=== PATIENT | female | born 1935 | race Caucasian/White ===

== ENCOUNTER 2016-10-12 06:01 | Day surgery (SDC) | payer MEDICARE ==
[~2016-10-12] VITALS: Ht 160 cm; Wt 92.8 kg
[2016-10-12] MEDS: Lactated Ringer's 1,000 ML IV SCH ×2 (05:05→07:27)
[~2016-10-12 06:01] MED LIST: ACET325T51 PO; ALEN70TA51 PO; CALC-714 PO; CARV12.52 PO; CeFAZolin 2 Gm/50 mL D5W IV Premix IV ONE; DABI150C PO; HYG25 PO; LEVO75TA4 PO; LISI10TA PO; METF500T4 PO; MULT1CAP60 PO; OMEG1CAP25 PO; SIMV20TA4 PO; TAMS0.4C98 PO
[2016-10-12] MEDS ORDERED: Propofol 10,000 mCg/mL 20 mL Inj ONE (06:02)
[2016-10-12] MEDS ORDERED: fentaNYL-PF 50 mCg/mL 2 mL Inj ONE (06:02)
[2016-10-12 06:43] VITALS: BP 105/68; PULSE 95; RESP 16; O2SAT 95
--- NOTE | 2016-10-12 07:19 | PCM.HPANE ---
Patient Data Date of Service: Oct 12, 2016 Surgeon Admitting Provider: Attending Provider:Kaykay Deleon MD Primary Care Physician:Harpreet Go MD Other Provider:Dora Mcmanus Anesthesia Reason for Visit Fecal Incontinence And Urgency Of Urination Ht/WT & BMI Height (Feet): 5 Height (Inches): 3.00 Weight (Kilograms): 92.8 Body Mass Index 36.00 Allergies Coded Allergies: No Known Allergies (Unverified , 10/06/16) Past Anesthesia History Anesthesia History: Denies:: Anesthesia Reactions Diabetes History Hx Diabetes?: Yes Type of Diabetes: Type II Glycemic Control: Oral Medication Current Bedside Blood Glucose: 147 MRSA MRSA: No Medications Blood Thinner: Pradaxa Hypertension Medication: Yes Home Meds Incl Beta Bryan: Yes (Carvedilol 12.5mg) Date Beta Bryan Taken: Oct 12, 2016 Time Beta Bryan Taken: 524 Reported Medications Acetaminophen 325 Mg Foykvn011 Mg PO Q4H PRN For Pain Ref 0 10/06/16 Tamsulosin (Flomax)0.4 Mg Capsule0.4 Mg PO DAILY Ref 0 10/06/16 Simvastatin 20 Mg Tpbyhw07 Mg PO HS Ref 0 10/06/16 Dabigatran Etexilate Mesylate (Pradaxa)150 Mg Psaajqb033 Mg PO BID 30 Days 10/06/16 [place]-3 Fatty Acids/Fish Oil ([place] 3 Fish Oil Softgel)1 Each Capsule.dr1 Each PO DAILY 10/06/16 Multivit-Min/Fe Fum/FA/Vit K (Multi For Her Softgel)18 Mg Iron-600 Mcg-40 Mcg Capsule1 Each PO DAILY 10/06/16 Metformin 500 Mg Yqrzkx700 Mg PO BID Ref 0 10/06/16 Lisinopril 10 Mg Rrnfti26 Mg PO DAILY 30 Days Ref 0 10/06/16 Levothyroxine 75 Mcg Jbwjlr07 Mcg PO DAILY Ref 0 10/06/16 Chlorthalidone 25 Mg Uzswfr47.5 Mg PO DAILY #30 TABLET 10/06/16 Carvedilol 12.5 Mg Ylodbb56.5 Mg PO BID Ref 0 10/06/16 Calcium Carb/Magnesium Cmb #10 (Galo-Mag Tablet Chewable)1 Each Tab.chew2 Each PO DAILY 10/06/16 Alendronate (Binosto)70 Mg Tablet.eff70 Mg PO WEEKLY 10/06/16 History History of ENT Problems?: No HEENT History: Denies:: Abnormal Airway Dysphagia Denture Type: None Teeth Condition: Within Normal Limits Hx of Heart Problems?: Yes Cardiovascular History: Positive for:: Atrial Fibrillation (hx of ablation 2002) Hypertension Irregular Heartbeat Hx of Respiratory Problem?: No Respiratory History: Denies:: Oxygen Administration Use of C-PAP Machine Hx Neurologic Problems?: Yes Neurological History: Positive for:: CVA (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) Denies:: Multiple Sclerosis Parkinson's Disease Seizures Hx of GI Problems?: No Hx of Problems?: Yes Genitourinary History: Denies:: Kidney Stones Urinary Tract Infection Female Hx: Denies:: Currently (hysterectomy) Hx Musculoskeletal Problems?: No Hx of Psycho/Social Problems?: No Hx Surgeries?: Yes (araceli/bso, tonsil, thyroid bx) Hx Any Other Health Problems?: Yes Other History: Denies:: Cancer Hx Diabetes: YesBedside Blood Glucose: 147 Hx Alcohol Use: YesAlcoholic Drinks Per Day: rarelyHx Substance Use: NoHave You Smoked inLast 12 mo: No Stop/Bang P-Blood Pressure: treated: Yes B- Body Mass Index > 35 kg/m2: No A- Age over 50: Yes N- Neck Large Circumference: No STEVE Risk Assessment: Low Risk, <3 Yes Risk Assessment Category Category 1A: Patient has history of documented sleep apnea, and HAS NOT received any narcotic, sedative or anesthesia administration during this stay. Category 1B: Patient has history of documented sleep apnea, and HAS received any narcotic , sedative or anesthesia administration during this stay Category 2: Patient has SUSPECTED Obstructive Sleep Apnea, and HAS received any narcotic , sedative or anesthesia administration during this stay. Category 3: Patient has SUSPECTED Obstructive Sleep Apnea and HAS NOT received narcotic, sedative or anesthesia administration during this stay. Category 4: Outpatient in Procedural Areas with known sleep apnea or who screen positive for High Risk via the STOP/BANG questionnaire. Exam Exam Vital Signs Vital Signs Date Time Temp Pulse Resp B/P Pulse Ox O2 Delivery O2 Flow Rate FiO2 10/12/16 06:43 36.1 95 16 105/68 95 Room Air General Appearance: Alert, Oriented X3, Cooperative, No Acute Distress HEENT/AIRWAY: MP 2 Lungs: Clear to Auscultation, Normal Air Movement Heart: Exam Unremarkable, Regular Rate/Rhythm, No Murmurs/Rubs/Gallops Meds/Labs/Diagnostics Admission Meds Current Medications Lactated Ringer's (Lr) 1,000 ml @ 10 mls/hr Q24H IV Last administered on t 05:05; Start 10/12/16 at 05:00; Stop 10/16/16 at 08:59 Bedside Blood Glucose: 147 Plan Impression Patient chart reviewed, patient interviewed and anesthestic plan with risks, benefits, and alternatives discussed, and informed consent obtained. NPO per Anesth. Guidelines: Yes ASA Physical Status: ASA2 Mod Systemic Disease Anesthetic Plan: MAC Bene/Risks/Altern/Consents: Yes HP Complete Prior to Induction: Yes Scottie Rosen MD Oct 12, 2016 07:19
[2016-10-12] MEDS ORDERED: Vancomycin 1,000 mg Inj IRRIGATION ONE (07:30)
[2016-10-12] MEDS ORDERED: Gentamicin 40 mg/mL 2 mL Inj IRRIGATION ONE (07:30)
[2016-10-12] MEDS ORDERED: Bupivacaine-MPF 0.5% W/EPI 30 mL Inj INJ ONE (07:30)
[2016-10-12] MEDS ORDERED: Atropine 0.4 mg/mL Inj IVPUSH PRN (07:50)
[2016-10-12] MEDS ORDERED: Lactated Ringer's 1,000 ML IV SCH (07:50)
[2016-10-12] MEDS ORDERED: Dexamethasone 4 mg/mL Inj IVPUSH PRN (07:50)
[2016-10-12] MEDS ORDERED: EPHEDrine Sulfate 50 mg/mL Inj IVPUSH PRN (07:50)
[2016-10-12] MEDS ORDERED: fentaNYL-PF 50 mCg/mL 2 mL Inj IVPUSH PRN (07:50)
[2016-10-12] MEDS ORDERED: Ondansetron 2 mg/mL 2 mL Inj IVPUSH PRN (07:50)
[2016-10-12] MEDS ORDERED: Phenylephrine 10,000 mCg/mL Inj IVPUSH PRN (07:50)
[2016-10-12] MEDS ORDERED: Lactated Ringer's 500 ML IV PRN (07:50)
[2016-10-12] MEDS ORDERED: Labetalol 5 mg/mL 4 mL Inj IV PRN (07:50)
[2016-10-12] MEDS ORDERED: HYDROmorphone 1 mg/mL Inj IVPUSH PRN (07:50)
[2016-10-12] MEDS ORDERED: Ondansetron 8 mg ODT Tablet PO PRN (08:35)
[2016-10-12] MEDS ORDERED: HYDROcodone-APAP 5-325 mg Tablet PO PRN (08:35)
[2016-10-12 08:43] VITALS: BP 102/88; PULSE 88; RESP 18; O2SAT 97
[2016-10-12 09:04] VITALS: BP 114/83; PULSE 84; RESP 16; O2SAT 96
--- NOTE | 2016-10-12 09:28 | PCM.ANEP1 ---
Post Anesthesia PACU Phase 1 Assessment Date of Service: Oct 12, 2016 Vital Signs Vital Signs Date Time Temp Pulse Resp B/P Pulse Ox O2 Delivery O2 Flow Rate FiO2 10/12/16 09:04 84 16 114/83 96 Room Air 10/12/16 08:43 36.6 88 18 102/88 97 Room Air 10/12/16 06:43 36.1 95 16 105/68 95 Room Air Anesthetic Administered: MAC Level of Alertness: Awake, talking PRIETO's with Equal Strength: No (back to baseline) Pain: No Nausea or Vomiting: No CV Function & Hydration Stable: Yes Airway Device: none Oxygen Delivery: Room Air Lungs: Clear to Auscultation, Normal Air Movement Dermatome Level: Full Sensation PACU Phase 2 Assessment Complications: No Follow up Care: No Patient Instructions Provided: N/A Scottie Rosen MD Oct 12, 2016 09:28
--- NOTE | 2016-10-12 20:00 | OP ---
[address] [address] OPERATIVE REPORT PATIENT: HALINA ALCANTAR : 1935 MR#: [id number] ADMIT: 10/12/2016 JOB ID: [id number] DATE OF SURGERY: 10/12/2016 PROCEDURE: Stage 1 InterStim implant to include 1 IPG implantation and 2 fluoroscopy imaging and guidance. SURGEON: Kaykay Deleon MD ANESTHESIA: Local with monitored anesthesia care and IV sedation. PREOPERATIVE DIAGNOSIS(ES): Intractable urinary urgency, frequency, urge incontinence, and fecal incontinence. POSTOPERATIVE DIAGNOSIS(ES): Intractable urinary urgency, frequency, urge incontinence, and fecal incontinence. INDICATIONS: The patient is a very active, otherwise healthy, 81-year-old woman with history of severe lower urinary tract symptoms and failing multiple efforts at therapy, conservative management, and multiple medications, electing trial of sacral nerve modulation. PROCEDURE IN DETAIL: After appropriate informed consent was obtained, the patient was brought to the operating room. She received IV antibiotics prior to the onset of the procedure. She was made comfortable in the prone position. All pressure points were carefully padded. Cleaned, prepped, and draped in the usual sterile fashion. Fluoroscope was brought in. We used a half/half mixture throughout the case of lidocaine and Marcaine with epinephrine for local anesthesia. Fluoroscope was used to outline the general location of the sacral foramina. A finder needle was used to traverse the S3 sacral foramen. We used both PA and lateral imaging. We had excellent responses of eufemia and toe to indicate an S3 response. Once we had good position of the needle, good angle, we converted this over in Seldinger fashion to the introducer and the quadripolar electrode was passed through this into good position. We had excellent responses at low thresholds on all four electrodes, including eufemia and toe. The introducer sheath was removed, allowing the tines deploy, locking the lead into place. All four electrodes were retested with good results. We then created a pocket below the right iliac crest. We tunneled the distal end of the lead out to the pocket, made connection to the extension wire, tunneled the extension wire out to the patient's left side, away from her right-sided pocket, and monitored her lead. We then irrigated the pocket and the incisions out copiously with vancomycin and gentamicin solution. Electrocautery was used for hemostasis, which was excellent. The wounds themselves were closed with a layer of 2-0 Vicryl suture, a layer of 4-0 Monocryl, and benzoin and Steri-Strips. The patient tolerated the procedure very well, was awakened, and taken back to the one-day surgery area prior to discharge to home. ALEXX
== END 2016-10-12 23:59 | disposition home or self-care (01) ==
LOC: SAS 06:01
PROVIDERS: ATTEND Urology
DX: R39.15 Urgency of urination (principal); R32 Unspecified urinary incontinence; R39.14 Feeling of incomplete bladder emptying; R15.9 Full incontinence of feces; N32.81 Overactive bladder; I10 Essential (primary) hypertension; E78.5 Hyperlipidemia, unspecified; E11.9 Type 2 diabetes mellitus without complications; E03.9 Hypothyroidism, unspecified; I69.354 Hemiplegia and hemiparesis following cerebral infarction affecting left non-dominant side; I48.91 Unspecified atrial fibrillation; Z79.01 Long term (current) use of anticoagulants; Z85.43 Personal history of malignant neoplasm of ovary; Z90.710 Acquired absence of both cervix and uterus; Z79.84 Long term (current) use of oral hypoglycemic drugs; Z87.440 Personal history of urinary (tract) infections
CPT/HCPCS: 64581; 76000; C1778; J0690; J1580; J3010; J3370; J7120

== ENCOUNTER 2016-10-26 05:58 | Day surgery (SDC) | payer MEDICARE ==
[~2016-10-26] VITALS: Ht 162.6 cm; Wt 92.0 kg
[~2016-10-26 05:58] MED LIST changes: -CeFAZolin 2 Gm/50 mL D5W IV Premix IV ONE
[2016-10-26] MEDS ORDERED: fentaNYL-PF 50 mCg/mL 2 mL Inj ONE (05:59)
[2016-10-26] MEDS ORDERED: Phenylephrine/NS 100 mCg/mL 10 mL Syringe IVPUSH ONE (05:59)
[2016-10-26] MEDS ORDERED: CeFAZolin 2 Gm/50 mL D5W IV Premix IV ONE (06:00)
[2016-10-26 06:34] VITALS: BP 94/78; PULSE 83; RESP 16; O2SAT 95
[2016-10-26] MEDS: Lactated Ringer's 1,000 ML IV SCH ×2 (07:01→07:57)
--- NOTE | 2016-10-26 07:18 | PCM.HPANE ---
Patient Data Date of Service: Oct 26, 2016 Surgeon Admitting Provider: Attending Provider:Kaykay Deleon MD Primary Care Physician:Harpreet Go MD Other Provider:Dora Mcmanus Anesthesia Reason for Visit Fecal Incontinence, Urgency Of Urination Ht/WT & BMI Height (Feet): 5 Height (Inches): 4 Weight (Kilograms): 92 Body Mass Index 34.00 Allergies Coded Allergies: No Known Allergies (Unverified , 10/06/16) Past Anesthesia History Anesthesia History: Denies:: Abnormal Airway, Anesthesia Reactions Diabetes History Hx Diabetes?: Yes Type of Diabetes: Type II Glycemic Control: Oral Medication Current Bedside Blood Glucose: 139 MRSA MRSA: No Medications Blood Thinner: Pradaxa Home Meds Incl Beta Bryan: Yes Date Beta Bryan Taken: Oct 25, 2016 Time Beta Bryan Taken: 1800 Reported Medications Acetaminophen 325 Mg Trqule520 Mg PO Q4H PRN For Pain Ref 0 10/06/16 Dabigatran Etexilate Mesylate (Pradaxa)150 Mg Uctewmt697 Mg PO BID 30 Days 10/06/16 Metformin 500 Mg Kwkymx408 Mg PO BID Ref 0 10/06/16 Levothyroxine 75 Mcg Mazeha26 Mcg PO DAILY Ref 0 10/06/16 Chlorthalidone 25 Mg Jadpuc70.5 Mg PO DAILY #30 TABLET 10/06/16 Carvedilol 12.5 Mg Hpaptf52.5 Mg PO BID Ref 0 10/06/16 Discontinued Reported Medications Tamsulosin (Flomax)0.4 Mg Capsule0.4 Mg PO DAILY Ref 0 10/06/16 Simvastatin 20 Mg Ztvtii87 Mg PO HS Ref 0 10/06/16 [place]-3 Fatty Acids/Fish Oil ([place] 3 Fish Oil Softgel)1 Each Capsule.dr1 Each PO DAILY 10/06/16 Multivit-Min/Fe Fum/FA/Vit K (Multi For Her Softgel)18 Mg Iron-600 Mcg-40 Mcg Capsule1 Each PO DAILY 10/06/16 Lisinopril 10 Mg Pkidcn86 Mg PO DAILY 30 Days Ref 0 10/06/16 Calcium Carb/Magnesium Cmb #10 (Galo-Mag Tablet Chewable)1 Each Tab.chew2 Each PO DAILY 10/06/16 Alendronate (Binosto)70 Mg Tablet.eff70 Mg PO WEEKLY 10/06/16 History History of ENT Problems?: No HEENT History: Denies:: Abnormal Airway Dysphagia Denture Type: None Teeth Condition: Within Normal Limits Hx of Heart Problems?: Yes Cardiovascular History: Positive for:: Atrial Fibrillation (hx of ablation 2002) Hypertension Irregular Heartbeat Hx of Respiratory Problem?: No Respiratory History: Denies:: Oxygen Administration Use of C-PAP Machine Hx Neurologic Problems?: Yes Neurological History: Positive for:: CVA (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) Denies:: Multiple Sclerosis Parkinson's Disease Seizures Hx of GI Problems?: No Hx of Problems?: Yes Genitourinary History: Denies:: Kidney Stones Urinary Tract Infection HX of Peritoneal Dialysis: No Female Hx: Denies:: Currently (hysterectomy) Hx Musculoskeletal Problems?: No Hx of Psycho/Social Problems?: No Hx Surgeries?: Yes (araceli/bso, tonsil, thyroid bx) Hx Any Other Health Problems?: Yes Other History: Denies:: Cancer Hx Diabetes: YesBedside Blood Glucose: 139 Hx Alcohol Use: YesHx Substance Use: No Smoking Status: Never Smoker Have You Smoked inLast 12 mo: No Stop/Bang Treated for Sleep Apnea?: No Do You Have a CPAP Machine?: No P-Blood Pressure: treated: Yes B- Body Mass Index > 35 kg/m2: No A- Age over 50: Yes N- Neck Large Circumference: No G- Gender Male: No STEVE Risk Assessment: Low Risk, <3 Yes Risk Assessment Category Category 1A: Patient has history of documented sleep apnea, and HAS NOT received any narcotic, sedative or anesthesia administration during this stay. Category 1B: Patient has history of documented sleep apnea, and HAS received any narcotic , sedative or anesthesia administration during this stay Category 2: Patient has SUSPECTED Obstructive Sleep Apnea, and HAS received any narcotic , sedative or anesthesia administration during this stay. Category 3: Patient has SUSPECTED Obstructive Sleep Apnea and HAS NOT received narcotic, sedative or anesthesia administration during this stay. Category 4: Outpatient in Procedural Areas with known sleep apnea or who screen positive for High Risk via the STOP/BANG questionnaire. Exam Exam Vital Signs Vital Signs Date Time Temp Pulse Resp B/P Pulse Ox O2 Delivery O2 Flow Rate FiO2 10/26/16 06:34 36.0 83 16 94/78 95 Room Air General Appearance: Alert, Oriented X3, Cooperative, No Acute Distress HEENT/AIRWAY: MP 2 Lungs: Clear to Auscultation Heart: Other (irreg irreg, no m/r/g) Meds/Labs/Diagnostics Admission Meds Current Medications Lactated Ringer's (Lr) 1,000 ml @ 120 mls/hr Q8H20M IV Last administered on t 07:01; Start 10/26/16 at 05:00; Stop 10/26/16 at 13:19 Bedside Blood Glucose: 139 Plan Impression Patient chart reviewed, patient interviewed and anesthestic plan with risks, benefits, and alternatives discussed, and informed consent obtained. NPO per Anesth. Guidelines: Yes ASA Physical Status: ASA3 Severe Disease Anesthetic Plan: MAC Bene/Risks/Altern/Consents: Yes HP Complete Prior to Induction: Yes Clint Yee DO Oct 26, 2016 07:18
[2016-10-26] MEDS ORDERED: Lactated Ringer's 500 ML IV PRN (07:27)
[2016-10-26] MEDS ORDERED: Lactated Ringer's 1,000 ML IV SCH (07:27)
[2016-10-26] MEDS ORDERED: HYDROmorphone 1 mg/mL Inj IVPUSH PRN (07:30)
[2016-10-26] MEDS ORDERED: Phenylephrine 10,000 mCg/mL Inj IVPUSH PRN (07:30)
[2016-10-26] MEDS ORDERED: Dexamethasone 4 mg/mL Inj IVPUSH PRN (07:30)
[2016-10-26] MEDS ORDERED: MetoCLOpramide 5 mg/mL 2 mL Inj IVPUSH PRN (07:30)
[2016-10-26] MEDS ORDERED: Ondansetron 2 mg/mL 2 mL Inj IVPUSH PRN (07:30)
[2016-10-26] MEDS ORDERED: EPHEDrine Sulfate 50 mg/mL Inj IVPUSH PRN (07:30)
[2016-10-26] MEDS ORDERED: fentaNYL-PF 50 mCg/mL 2 mL Inj IVPUSH PRN (07:30)
[2016-10-26] MEDS ORDERED: Bupivacaine-MPF 0.5% W/EPI 30 mL Inj INJ ONE (07:55)
[2016-10-26] MEDS ORDERED: Vancomycin 1,000 mg Inj IRRIGATION ONE (07:56)
[2016-10-26] MEDS ORDERED: Gentamicin 40 mg/mL 2 mL Inj IRRIGATION ONE (07:57)
[2016-10-26 08:18] VITALS: BP 97/77; PULSE 73; RESP 16; O2SAT 95
[2016-10-26 09:15] VITALS: BP 114/65; PULSE 66; RESP 16; O2SAT 94
--- NOTE | 2016-10-26 09:19 | PCM.ANEP1 ---
Post Anesthesia PACU Phase 1 Assessment Date of Service: Oct 26, 2016 Vital Signs Vital Signs Date Time Temp Pulse Resp B/P Pulse Ox O2 Delivery O2 Flow Rate FiO2 10/26/16 08:18 36.5 73 16 97/77 95 Room Air 10/26/16 06:34 36.0 83 16 94/78 95 Room Air Anesthetic Administered: MAC Level of Alertness: Awake, talking Pain: No Nausea or Vomiting: No CV Function & Hydration Stable: Yes Airway Device: Oxygen Delivery: Room Air Lungs: Clear to Auscultation PACU Phase 2 Assessment Complications: No Follow up Care: No Patient Instructions Provided: Yes Clint Yee DO Oct 26, 2016 09:19
--- NOTE | 2016-10-27 21:03 | OP ---
[address] [address] OPERATIVE REPORT PATIENT: HALINA ALCANTAR : 1935 MR#: [id number] ADMIT: 10/26/2016 JOB ID: [id number] DATE OF SURGERY: 10/26/2016 SURGEON: Kaykay Deleon MD. PROCEDURE: Stage II InterStim implant to include IPG implantation and complex initial programming of the device. ANESTHESIA: Local with monitored anesthesia care. PREOPERATIVE DIAGNOSIS(ES): Intractable urinary urgency, frequency, urge incontinence. POSTOPERATIVE DIAGNOSIS(ES): Intractable urinary urgency, frequency, urge incontinence. INDICATIONS: The patient is a 81-year-old woman who is very active with longstanding complaints of severe urge urinary incontinence, soaking multiple Depends per day, having tried and failed numerous conservative measures as well as medications electing InterStim trial. She had right-sided lead placed October 22, 2016 and had outstanding results, some days completely dry, other days a small volume leak one pad only and is wishing to proceed with IPG implantation. PROCEDURE IN DETAIL: After appropriate informed consent was obtained, the patient was brought to the operating room. She received IV antibiotics prior to the onset of the procedure. She was made comfortable in the prone position. All pressure points carefully padded. Cleaned, prepped, and draped in the usual sterile fashion. A half-half mixture of lidocaine and Marcaine was used for local anesthesia. We infiltrated the area overlying the right-sided buttock pocket. This was opened then sharply, bluntly and with electrocautery to expose the extension wire. The distal end of this, the braided portion was cut, and the externalized portion was allowed to fall away from the patient's body. We then discarded the anterior portion of the temporary extension wire. The pocket itself was enlarged to accommodate the size of the Medtronic IPG sharply, bluntly and with electrocautery. Hemostasis was quite good. We attached the Medtronic 2 IPG. Gentle tug revealed a good connection. The pocket was irrigated out copiously with vancomycin and gentamicin solution and the pocket was closed in layers, a layer of 2-0 Vicryl, layer of 4-0 Monocryl, a layer of Dermabond. Patient tolerated this portion very well and was returned to the one-day surgery area where the device itself was turned on and found to be operating in normal condition. It was set up initially with a rate of 14, pulse width of 210. Program one was set at 0 negative and 3 positive. Program two, 1 negative and 3 positive. Program three, 2 negative and 0 positive. Program four was 3 negative and 0 positive.
== END 2016-10-26 23:59 | disposition home or self-care (01) ==
LOC: SAS 05:58 → EDUNIT# 07:15 → SAS 23:59
PROVIDERS: ATTEND Urology
DX: R15.9 Full incontinence of feces (principal); R39.15 Urgency of urination; E11.9 Type 2 diabetes mellitus without complications; I48.91 Unspecified atrial fibrillation; I10 Essential (primary) hypertension; Z79.899 Other long term (current) drug therapy; Z79.84 Long term (current) use of oral hypoglycemic drugs; Z86.73 Personal history of transient ischemic attack (TIA), and cerebral infarction without residual deficits
CPT/HCPCS: 64590; C1767; J0690; J1580; J2370; J3010; J3370; J7120